=== PATIENT | female | born 1995 | race Caucasian/White ===

== ENCOUNTER 2018-11-09 01:39 | Inpatient (IN) | payer OTHER ==
[2018-11-09] MEDS ORDERED: METHYLERGONOVINE 0.2MG/ML AMP IM PRN (05:17)
[2018-11-09] MEDS ORDERED: Ringers Lactate 1,000 ML IV PRN (05:17)
[2018-11-09] MEDS ORDERED: CARBOPROST TROME 250 MCG/ML IM PRN (05:17)
[2018-11-09] MEDS ORDERED: Ringers Lactate 1,000 ML IV SCH (06:00)
[2018-11-09] MEDS ORDERED: OXYTOCIN/LR 20 UNIT/1,000 ML BAG IV SCH ×2 (06:00→12:00)
[2018-11-09 06:07] VITALS: BMI 23.6
[2018-11-09] MEDS ORDERED: OXYTOCIN/LR 20 UNIT/1,000 ML BAG IV ONE (06:28)
[2018-11-09 06:46] LABS: RPR Titer ND
[2018-11-09 06:49] LABS: Urine Appearance CLEAR; Urine Bilirubin NEGATIVE (NEG); Urine Blood NEGATIVE (NEG); Urine Color YELLOW; Urine Glucose NEGATIVE (NEG); Urine Protein NEGATIVE (NEG); Urine Specific Gravity <=1.005 (1.005-1.030); Urine Urobilinogen 0.2 mg/dL (0.2-1.0); Urine pH 6.5 (5.0-7.0)
[2018-11-09 06:50] LABS: Absolute Lymphocytes (CBC) 2.1 K/uL (0.7-4.9); Absolute Monocytes 0.7 K/uL (0.1-1.3); Absolute Neutrophil 9.3 K/uL (1.8-8.0); Basophils % 0.3 % (0-1.3); Eosinophils % 0.5 % (0-4.4); Hematocrit 35.8 % (36.0-45.0); Monocytes % 6.1 % (3.3-12.3); RBC Red Blood Cell Count 3.81 M/uL (3.86-4.86)
[2018-11-09 07:07] LABS: Urine Microscopic Reflex ORDER UMIC
[2018-11-09 07:08] LABS: Urine Bacteria <20 /HPF (<20); Urine Culture Reflex Order REFLEXED; Urine RBC <5 /HPF (NONE SEEN)
[2018-11-09] MEDS ORDERED: BUTORPHANOL 1 MG/ML INJ IV PRN (08:36)
[2018-11-09] MEDS ORDERED: PROMETHAZINE 25 MG/ML VIAL IM PRN (08:36)
[2018-11-09] MEDS ORDERED: FENTANYL CITR 100 MCG/2 ML IV ONE (10:44)
[2018-11-09] MEDS ORDERED: ROPIVACAINE HCL 100 ML IV ONE (10:45)
[2018-11-09] MEDS ORDERED: ROPIVACAINE HCL 2 MG/ML 100ML IV ONE (10:45)
[2018-11-09] MEDS ORDERED: LIDOCAINE 1% MPF 30 ML VIAL ONE (11:05)
[2018-11-09] MEDS ORDERED: DIPHENHYDRAMINE 25 MG TAB/CAP PO PRN (11:23)
[2018-11-09] MEDS ORDERED: BISACODYL 10 MG RECTAL SUPP RECT PRN (11:23)
[2018-11-09] MEDS ORDERED: DOCUSATE NA/SENNA CONC 1 TAB PO PRN (11:23)
[2018-11-09] MEDS ORDERED: IBUPROFEN 200 MG TAB PO PRN (11:23)
[2018-11-09] MEDS ORDERED: ACETAMINOPHEN 500 MG TAB PO PRN (11:23)
[2018-11-09] MEDS ORDERED: Oxycodone HCl/Acetaminophen 1 TAB TAB PO PRN ×2 (11:23)
--- NOTE | 2018-11-09 11:57 | PREOPHP ---
Date of Admission: 11/09/2018 A 23-year-old primigravida, 39 weeks, Rh positive, immune to Rubella. Negative beta strep screen. 2 .5 cm, 60% effaced, vertex, -1 station. Yesenia regularly. Admission and labor talk given. The patient probably will be requesting epidural little bit later when she gets a more active labor. Ri ght now, she is not uncomfortable at all. Rupture of membranes, clear fluid. Full labor talk given. RAMONA/AL Voice ID: [id number]
[2018-11-09] MEDS ORDERED: Ringers Lactate 1,000 ML IV ONE (14:03)
--- NOTE | 2018-11-09 22:18 | OP ---
Surgeon: Arsh Vasquez MD A 23-year-old, primigravida, 39 weeks, followed antepartum without complications. Rh positive, immun e to Rubella. Negative beta strep screen, 2.5 cm on admission, 56% effaced, vertex, well applied. C ontracting regularly. Rupture of membranes, clear fluid. The patient went into an active labor shaun joana, received Stadol 1 mg IV, 25 mg of Phenergan IM. At 5 cm, requested epidural, but went rapidly t o complete. Second stage of 15 to 20 minutes. Spontaneous vaginal delivery of an estimated 6-pound- plus female, Apgars 9 and 9. Small first-degree laceration on the right side of the introitus, 2-0 c hromic after local infiltration. Schultze delivery of the placenta, which inspected and noted be int act and normal, 350 cc or less blood loss. Tolerated all procedures well. Final Diagnoses: Term intrauterine , spontaneous vaginal delivery. RAMONA/AL Voice ID: [id number] Report ID: [id number]
[2018-11-09 22:27] LABS: RPR (Rapid Plasma Reagin) NON-REACT (NON-REACT)
[2018-11-10 14:15] VITALS: BP 105/65; TEMP 97.2
--- NOTE | 2018-11-11 00:10 | DS ---
Date of Discharge: 11/10/2018 A 23-year-old, primigravida, 39 weeks' gestation, had an uneventful labor and delivery, 6-pound and 2 -ounce female, Apgars 9 and 9. Small first-degree laceration on the right side of the introitus, sut ured with 2-0 chromic under local infiltration. Schultze delivery of the placenta, which was inspect ed and noted to be intact and normal. A 350 cc or less blood loss. Rh positive, immune to Rubella. Negative beta strep screen. ; afebrile, ambulating, and voiding. Lochia is normal. She will be dismissed later this afternoon. Requests no analgesics on dismissal. She is breast feeding. Full post- talk given. She is to report any temperature elevation of 100 degrees or greater, severe pain, heavy bleeding, or any other type of abnormalities. She has had her Tdap immunization. No questions asked this morning. Final Diagnoses: Term intrauterine , 39 weeks, vaginal delivery. RAMONA/AL Voice ID: [id number] Report ID: [id number]
[2018-11-12 02:59] LABS: HBsAG Nonreactive (Nonreactive)
== END 2018-11-10 14:30 | disposition home or self-care (01) | DRG 807 ==
LOC: 2ND-WC 05:19
PROVIDERS: ADMIT Specialist; ATTEND Specialist
PROC: 10E0XZZ Delivery of Products of Conception, External Approach (ICD-10-PCS; principal; 2018-11-09)
PROC: 0HQ9XZZ Repair Perineum Skin, External Approach (ICD-10-PCS; 2018-11-09)
DX: O70.0 First degree perineal laceration during delivery (principal); Z37.0 Single live birth; Z3A.39 39 weeks gestation of pregnancy
CPT/HCPCS: 36415; 81003; 81015; 85025; 86592; 86901; 87086; 87088; 87340; J0595; J2210; J2550; J2590

== ENCOUNTER 2021-06-07 04:50 | Inpatient (IN) | payer OTHER ==
--- OUTSIDE RECORDS SUMMARY | 2021-06-07 05:08 | XMS REPORT | Continuity of Care Document ---
:1995 Author Organization [facility] Address [address] [place] [address] [address] [place] [address] Care Team Providers Name Role Phone RITESH Attending Clinician Unavailable ALEJANDRA, Basil Attending Clinician Unavailable Miky CHRISTIANSON Attending Clinician Unavailable Princess SANZ, R Attending Clinician Doctor Unassigned, Name Attending Clinician Unavailable Alejandra SANZ, Basil Attending Clinician Visit, Nurse Attending Clinician Unavailable Esdras WILSON J Attending Clinician Unavailable Po, [facility] Attending Clinician Unavailable Timothy MCPHERSON Attending Clinician TIMOTHY Attending Clinician Unavailable Orquidea AVITIA, C Attending Clinician Karolyn AYOUB Attending Clinician Unavailable RITESH Admitting Clinician Unavailable Payers Payer Name Policy Type Policy Number Effective Date Expiration Date S madonna MEDICAID PENDING PENDING 2020 00:00:00 Advance Directives Directive Decision Effective Termination Comments Source Date Date Healthcare Agents on N/A [facility] Agent Medical RelationshipCommunicationJai Branch [facility] [phone] (Mobile) Problems Condition Condition Condition Status Onset Resolution Last Treating Co mments Source Name Details Category Date Date Treatment Clinician Date Overweight Overweight Disease Active U nivers (BMI (BMI 4-19 ity of 25.0-29.9) 25.0-29.9) [place] [facility] Multiparit Multiparit Disease Active U nivers y y 4-19 ity of 00:00: [place] [facility] History of History of Disease Active U nivers anxiety anxiety 4-19 ity of 00:00: [place] 00 [facility] 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 7-22 it y of ve ve 00:00: [place] 00 [facility] Branch Depo-Prove Depo-Prove Disease Active 2019- U alexandre ra ra 9-18 ity of contracept contracept [place] status malik status 00 Me dical Branch Hypokalemi Hypokalemi Disease Active 2017-06 U alexandre a a 1-04 ity of 00:00: [address] Branch 11 weeks 11 weeks Disease Active 2017-06 Unive rs gestation gestation 1-03 ity of of of 00:00: [place] 00 [facility] Branch Hyperemesi Hyperemesi Disease Active 2017-06 U alexandre s s 1-03 ity of 00:00: [address] Maternal Maternal Disease Active 2017-06 Overview: Un graciela varicella, varicella, 0-04 Address i ty of non-immune non-immune 00:00[place] [facility] Supervisio Supervisio Disease Active 2017-06 U alexandre n of n of 0-03 ity of high-risk high-risk 00:[place] dical first first Branch trimester trimester Depression Depression Disease Active 2017-06 Overview : Univers 0-03 Currently ity of 00:00: see [place] 00 [facility] milagros on Branch zoloft Nausea and Nausea and Disease Active 2017-06 U alexandre vomiting vomiting 0-03 ity of during during 00:00: [place] 00 [facility] prior to prior to Branch 22 weeks 22 weeks gestation gestation Allergies, Adverse Reactions, Alerts Allergy Allergy Status Severity Reaction(s) Onset Inactive Treating Comm ents Source Name Type Date Date Clinician NO KNOWN Drug Active Univers ALLERGIE Class ity of S [facility] Social History Social Habit Start Date Stop Date Quantity Comments Source ASSERTION 2020-09-30 University of 00:00:00 [facility] Exposure to Not sure University of SARS-CoV-2 [facility] (event) Branch Tobacco use and 2020-10-16 2020-10-16 Never used Universit y of exposure 00:00:00 00:00:00 [facility] Alcohol intake 2020-10-16 2020-10-16 Current drinker Unive rsity of 00:00:00 00:00:00 of alcohol [facility] (finding) [facility] Alcohol Comment 2018-04-01 2018-04-01 social Universit y of 00:00:00 00:00:00 [facility] Sex Ass[birth year] At [birth year] Universit y of 00:00:00 00:00:00 [facility] Smoking Status Start Date Stop Date Source Never smoker [facility] Medications Ordered Filled Start Stop Current Ordering Indication Dosage Frequency Signature Comments Components Source Medication Medication Date Date Medication? Clinician (SIG) Name Name proMETHazin Yes [id number] 25mg Take 1 Univers e 25 mg 4-27 tablet by ity of tablet 00:00: mouth [place] [id number] every 4 Medical (four) Branch hours as needed for Nausea and Vomiting (N/V). proMETHazin Yes [id number] 25mg Take 1 Univers e 25 mg 4-27 tablet by ity of tablet 00:00: mouth [place] [id number] every 4 Medical (four) Branch hours as needed for Nausea and Vomiting (N/V). sertraline Yes Take by Uni vers HCl (ZOLOFT 4-19 mouth. ity of ORAL) 19:14: [address] sertraline Yes Take by Uni vers HCl (ZOLOFT 4-19 mouth. ity of ORAL) 19:14: [address] sertraline Yes Take by Uni vers HCl (ZOLOFT 4-19 mouth. ity of ORAL) 19:14: [address] sertraline Yes Take by Uni vers HCl (ZOLOFT 4-19 mouth. ity of ORAL) 19:14: [address] sertraline Yes Take by Uni vers HCl (ZOLOFT 4-19 mouth. ity of ORAL) 19:14: [address] sertraline 2019-06 Yes Take by Uni vers HCl (ZOLOFT 0-22 mouth. ity of ORAL) 18:00: [address] sertraline 2019-06 Yes Take by Uni vers HCl (ZOLOFT 0-22 mouth. ity of ORAL) 18:00: [address] sertraline 2019-06 Yes Take by Uni vers HCl (ZOLOFT 0-22 mouth. ity of ORAL) 18:00: [place] 03 Medical Branch LOESTRIN FE 2020-1 Yes [id number] 1{tbl} Take 1 Univers (MICROGESTI 0-22 tablet by ity of N FE 07/19) 00:00: mouth [place] 1 mg-20 mcg 00 daily. Medica l (21)/75 mg Branch (7) tablet LOESTRIN FE 2020-1 Yes [id number] 1{tbl} Take 1 Univers (MICROGESTI 0-22 tablet by ity of N FE 07/19) 00:00: mouth [place] 1 mg-20 mcg 00 daily. Medica l (21)/75 mg Branch (7) tablet LOESTRIN FE 2020- Yes [id number] 1{tbl} Take 1 Univers (MICROGESTI 0-22 tablet by ity of N FE 07/19) 00:00: mouth [place] 1 mg-20 mcg 00 daily. Medica l (21)/75 mg Branch (7) tablet LOESTRIN FE 2020- Yes [id number] 1{tbl} Take 1 Univers (MICROGESTI 0-22 tablet by ity of N FE 07/19) 00:00: mouth [place] 1 mg-20 mcg 00 daily. Medica l (21)/75 mg Branch (7) tablet LOESTRIN FE 2020- Yes [id number] 1{tbl} Take 1 Univers (MICROGESTI 0-22 tablet by ity of N FE 07/19) 00:00: mouth [place] 1 mg-20 mcg 00 daily. Medica l (21)/75 mg Branch (7) tablet LOESTRIN FE 2020- Yes [id number] 1{tbl} Take 1 Univers (MICROGESTI 0-22 tablet by ity of N FE 07/19) 00:00: mouth [place] 1 mg-20 mcg 00 daily. Medica l (21)/75 mg Branch (7) tablet LOESTRIN FE 2020- Yes [id number] 1{tbl} Take 1 Univers (MICROGESTI 0-22 tablet by ity of N FE 07/19) 00:00: mouth [place] 1 mg-20 mcg 00 daily. Medica l (21)/75 mg Branch (7) tablet LOESTRIN FE 2020- Yes [id number] 1{tbl} Take 1 Univers (MICROGESTI 0-22 tablet by ity of N FE 07/19) 00:00: mouth [place] 1 mg-20 mcg 00 daily. Medica l (21)/75 mg Branch (7) tablet sertraline 2019-0 Yes Take by Uni vers HCl (ZOLOFT 7-21 mouth. ity of ORAL) 17:11: [address] sertraline 2020-0 Yes Take by Uni vers HCl (ZOLOFT 7-21 mouth. ity of ORAL) 17:11: [address] sertraline 2019-0 Yes Take by Uni vers HCl (ZOLOFT 7-21 mouth. ity of ORAL) 17:11: [address] sertraline 2020-0 Yes Take by Uni vers HCl (ZOLOFT 7-21 mouth. ity of ORAL) 17:11: [address] LOESTRIN FE 2019-0 Yes [id number] 1{tbl} Take 1 Univers (MICROGESTI 7-21 tablet by ity of N FE 07/19) 00:00: mouth [place] 1 mg-20 mcg 00 daily. Medica l (21)/75 mg Branch (7) tablet LOESTRIN FE 2020-0 Yes [id number] 1{tbl} Take 1 Univers (MICROGESTI 7-21 tablet by ity of N FE 07/19) 00:00: mouth [place] 1 mg-20 mcg 00 daily. Medica l (21)/75 mg Branch (7) tablet LOESTRIN FE 2020-0 Yes [id number] 1{tbl} Take 1 Univers (MICROGESTI 7-21 tablet by ity of N FE 07/19) 00:00: mouth [place] 1 mg-20 mcg 00 daily. Medica l (21)/75 mg Branch (7) tablet LOESTRIN FE 2020-0 Yes [id number] 1{tbl} Take 1 Univers (MICROGESTI 7-21 tablet by ity of N FE 07/19) 00:00: mouth [place] 1 mg-20 mcg 00 daily. Medica l (21)/75 mg Branch (7) tablet LOESTRIN FE 2020-0 2020- No [id number] 1{tbl} Take 1 Univers (MICROGESTI 7-21 10-22 tablet by it y of N FE 07/19) 00:00: 00:00 mouth [place] 1 mg-20 mcg 00 :00 daily. Medica l (21)/75 mg Branch (7) tablet LOESTRIN FE 2019-0 2020- No [id number] 1{tbl} Take 1 Univers (MICROGESTI 7-21 10-22 tablet by it y of N FE 07/19) 00:00: 00:00 mouth [place] 1 mg-20 mcg 00 :00 daily. Medica l (21)/75 mg Branch (7) tablet medroxyPROG 2019-0 2020- No 150mg Univ ers ESTERone 12-0912 ity of (DEPO-PROVE 16:30: 15:27 [place] RA) 00 :00 Medical injection Branch 150 mg medroxyPROG 2019-0 2020- No 150mg 150 mg, U nivers ESTERone 12-0912 Intramuscu ity of (DEPO-PROVE 16:30: 15:27 lar, ONCE, [place] RA) 00 :00 1 dose, Medical injection Fri Branch 150 mg 12/10/19 at 1130, Routine pyridoxine 2019- No Take by Un graciela HCl, 09-28- mouth. ity of vitamin B6, 20:38: 00:00 [place] (VITAMIN 29 :00 Medical B-6 ORAL) Branch sertraline 0 Yes Take by Uni vers HCl (ZOLOFT - mouth. ity of ORAL) 20:12: [place] [address] Medical Branch sertraline 2019-0 Yes Take by Uni vers HCl (ZOLOFT - mouth. ity of ORAL) 20:12: [place] [address] Medical Branch sertraline 2019-0 Yes Take by Uni vers HCl (ZOLOFT - mouth. ity of ORAL) 20:12: [address] Branch sertraline 2019-0 Yes Take by Uni vers HCl (ZOLOFT 4-01 mouth. ity of ORAL) 20:12: [place] [address] Medical Branch medroxyPROG 2019-0 2020- No 150mg Univ ers ESTERone -20 03-20 ity of (DEPO-PROVE 16:15: 15:09 [place] RA) 00 :00 Medical injection Branch 150 mg medroxyPROG 2020-0 2020- No 150mg 150 mg, U nivers ESTERone 09-16 03-20 Intramuscu ity of (DEPO-PROVE 16:15: 15:09 lar, ONCE, [place] RA) 00 :00 1 dose, Medical injection Fri Branch 150 mg 3/20/20 at 1115, Routine medroxyPROG 2019-0 2020- No 150mg Univ ers ESTERone 3-20 -20 ity of (DEPO-PROVE 16:15: 15:09 [place] RA) 00 :00 Medical injection Branch 150 mg medroxyPROG 2019-0 2019- No 150mg 150 mg, U nivers ESTERone -16 09-20 Intramuscu ity of (DEPO-PROVE 16:15: 15:09 lar, ONCE, [place] RA) 00 :00 1 dose, Medical injection Fri Branch 150 mg /20 at 1115, Routine pyridoxine Yes Take by Uni vers HCl, 9-18 mouth. ity of vitamin B6, 13:42: [place] (VITAMIN 39 Medical B-6 ORAL) [facility] pyridoxine Yes Take by Uni vers HCl, 9-18 mouth. ity of vitamin B6, 13:42: [place] (VITAMIN 39 Medical B-6 ORAL) [place] pyridoxine Yes Take by Uni vers HCl, 9-18 mouth. ity of vitamin B6, 13:42: [place] (VITAMIN 39 Medical B-6 ORAL) [place] pyridoxine Yes Take by Uni vers HCl, 9-18 mouth. ity of vitamin B6, 13:42: [place] (VITAMIN 39 Medical B-6 ORAL) [place] pyridoxine 2017-06 Yes Take by Uni vers HCl, 1-04 mouth. ity of vitamin B6, 19:46: [place] (VITAMIN 54 Medical B-6 ORAL) Branch PNV 67-iron 2017-06 Yes [id number] 1{each} Take 1 Univers ps-folate 0-03 Each by ity of no.1-dha 00:00: mouth [place] (VITAFOL 00 daily. Medical ULTRA) 29 Branch mg iron- 1 mg-200 mg Cap proMETHazin 2017-06 Yes [id number] 25mg Take 1 Univers e 25 mg 0-03 tablet by ity of tablet 00:00: mouth [place] 00 every 6 Medical (six) Branch hours as needed for Nausea and Vomiting (N/V). PNV 67-iron 2017-06 Yes [id number] 1{each} Take 1 Univers ps-folate 0-03 Each by ity of no.1-dha 00:00: mouth [place] (VITAFOL 00 daily. Medical ULTRA) 29 Branch mg iron- 1 mg-200 mg Cap proMETHazin 2017-06 Yes [id number] 25mg Take 1 Univers e 25 mg 0-03 tablet by ity of tablet 00:00: mouth [place] 00 every 6 Medical (six) Branch hours as needed for Nausea and Vomiting (N/V). PNV 67-iron 2017-06 Yes [id number] 1{each} Take 1 Univers ps-folate 0-03 Each by ity of no.1-dha 00:00: mouth [place] (VITAFOL 00 daily. Medical ULTRA) 29 Branch mg iron- 1 mg-200 mg Cap proMETHazin 2017-06 Yes [id number] 25mg Take 1 Univers e 25 mg 0-03 tablet by ity of tablet 00:00: mouth [place] 00 every 6 Medical (six) Branch hours as needed for Nausea and Vomiting (N/V). PNV 67-iron 2017-06 Yes [id number] 1{each} Take 1 Univers ps-folate 0-03 Each by ity of no.1-dha 00:00: mouth [place] (VITAFOL 00 daily. Medical ULTRA) 29 Branch mg iron- 1 mg-200 mg Cap proMETHazin 2017-06 Yes [id number] 25mg Take 1 Univers e 25 mg 0-03 tablet by ity of tablet 00:00: mouth [place] 00 every 6 Medical (six) Branch hours as needed for Nausea and Vomiting (N/V). PNV 67-iron 2017-06 Yes [id number] 1{each} Take 1 Univers ps-folate 0-03 Each by ity of no.1-dha 00:00: mouth [place] (VITAFOL 00 daily. Medical ULTRA) 29 Branch mg iron- 1 mg-200 mg Cap proMETHazin 2017-06 Yes [id number] 25mg Take 1 Univers e 25 mg 0-03 tablet by ity of tablet 00:00: mouth [place] 00 every 6 Medical (six) Branch hours as needed for Nausea and Vomiting (N/V). PNV 67-iron 2017-06 2020- No [id number] 1{each} Take 1 Univers ps-folate 0-03 04-01 Each by ity of no.1-dha 00:00: 00:00 mouth [place] (VITAFOL 00 :00 daily. Medical ULTRA) 29 Branch mg iron- 1 mg-200 mg Cap proMETHazin 2017-06 2020- No [id number] 25mg Take 1 Univers e 25 mg 0-03 09-28 tablet by adalid of tablet 00:00: 00:00 mouth [place] 00 :00 every 6 Medical (six) Branch hours as needed for Nausea and Vomiting (N/V). Immunizations Ordered Filled Immunization Date Status Comments Sourc e Immunization Name Name HPV 2012-05-03 Completed University of 00:00:00 [place] [facility] HPV 2012-05-03 Completed University of 00:00:00 [place] [facility] HPV 2012-05-03 Completed University of 00:00:00 [place] [facility] HPV 2012-05-03 Completed University of 00:00:00 [place] [facility] HPV 2012-05-03 Completed University of 00:00:00 [place] [facility] HPV 2012-05-03 Completed University of 00:00:00 [place] [facility] HPV 2012-05-03 Completed University of 00:00:00 [place] [facility] HPV 2012-05-03 Completed University of 00:00:00 [facility] Branch HPV 2012-05-03 Completed University of 00:00:00 [facility] Branch HPV 2012-05-03 Completed University of 00:00:00 [place] [facility] HPV 2012-05-03 Completed University of 00:00:00 [place] [facility] HPV 2012-05-03 Completed University of 00:00:00 [place] [facility] HPV 2012-05-03 Completed University of 00:00:00 [place] [facility] HPV 2012-05-03 Completed University of 00:00:00 [place] [facility] HPV 2012-05-03 Completed University of 00:00:00 [facility] Branch HPV 2012-05-03 Completed University of 00:00:00 [facility] Branch HPV 2012-05-03 Completed University of 00:00:00 [place] [facility] HPV 2012-05-03 Completed University of 00:00:00 [place] [facility] HPV 2012-05-03 Completed University of 00:00:00 [facility] Branch HPV 2012-05-03 Completed University of 00:00:00 [facility] Branch HPV 2012-05-03 Completed University of 00:00:00 [facility] Branch Tdap 2011-06-30 Completed University of 00:00:00 [facility] Branch Tdap 2011-06-30 Completed University of 00:00:00 [facility] Branch Tdap 2011-06-30 Completed University of 00:00:00 [facility] Branch TDAP 2011-06-30 Completed University of 00:00:00 [facility] Branch TDAP 2011-06-30 Completed University of 00:00:00 [facility] Branch TDAP 2011-06-30 Completed University of 00:00:00 [place] [facility] TDAP 2011-06-30 Completed University of 00:00:00 [place] [facility] TDAP 2011-06-30 Completed University of 00:00:00 [place] [facility] TDAP 2011-06-30 Completed University of 00:00:00 [place] [facility] TDAP 2011-06-30 Completed University of 00:00:00 [place] [facility] TDAP 2011-06-30 Completed University of 00:00:00 [place] [facility] TDAP 2011-06-30 Completed University of 00:00:00 [place] [facility] TDAP 2011-06-30 Completed University of 00:00:00 [place] [facility] TDAP 2011-06-30 Completed University of 00:00:00 [place] [facility] TDAP 2011-06-30 Completed University of 00:00:00 [place] [facility] TDAP 2011-06-30 Completed University of 00:00:00 [place] [facility] Tdap 2011-06-30 Completed University of 00:00:00 [place] [facility] Tdap 2011-06-30 Completed University of 00:00:00 [place] [facility] Tdap 2011-06-30 Completed University of 00:00:00 [facility] Branch Tdap 2011-06-30 Completed University of 00:00:00 [facility] Branch Tdap 2011-06-30 Completed University of 00:00:00 [facility] Vital Signs Vital Name Observation Time Observation Value Comments Source Systolic blood 2020-10-16 19:04:00 120 mm[Hg] Univer sity of pressure [facility] Diastolic blood 2020-10-16 19:04:00 80 mm[Hg] Unive rsity of pressure [facility] Heart rate 2020-10-16 19:04:00 88 /min [facility] Body temperature 2020-10-16 19:04:00 36.44 Echo [facility] 2020-10-16 19:04:00 16 /min [facility] Body height 2020-10-16 19:04:00 157.5 cm [facility] Body weight 2020-10-16 19:04:00 67.813 kg [facility] BMI 2020-10-16 19:04:00 27.34 kg/m2 Universi ty of [place] [facility] Systolic blood 2020-04-20 18:03:00 136 mm[Hg] Univer sity of pressure [place] [facility] Diastolic blood 2020-04-20 18:03:00 86 mm[Hg] Unive rsity of pressure [place] [facility] Heart rate 2020-04-20 18:03:00 98 /min Universi ty of [place] [facility] Body temperature 2020-04-20 18:03:00 36.72 Echo Univ ersity of [place] [facility] Respiratory rate 2020-04-20 18:03:00 16 /min Univ ersity of [place] [facility] Body height 2020-04-20 18:03:00 157.5 cm Universi ty of [place] [facility] Body weight 2020-04-20 18:03:00 67.217 kg Universi ty of [place] [facility] BMI 2020-04-20 18:03:00 27.10 kg/m2 Universi ty of [place] [facility] Systolic blood 2020-01-18 16:23:00 134 mm[Hg] Univer sity of pressure [place] [facility] Diastolic blood 2020-01-18 16:23:00 88 mm[Hg] Unive rsity of pressure [place] [facility] Heart rate 2020-01-18 16:23:00 89 /min Universi ty of [place] [facility] Body temperature 2020-01-18 16:23:00 36.33 Echo Univ ersity of [place] [facility] Respiratory rate 2020-01-18 16:23:00 16 /min Univ ersity of [place] [facility] Body height 2020-01-18 16:23:00 157.5 cm Universi ty of [place] [facility] Body weight 2020-01-18 16:23:00 64.553 kg Universi ty of [place] [facility] BMI 2020-01-18 16:23:00 26.03 kg/m2 Universi ty of [place] [facility] Systolic blood 2019-12-10 15:25:00 126 mm[Hg] Univer sity of pressure [place] [facility] Diastolic blood 2019-12-10 15:25:00 77 mm[Hg] Unive rsity of pressure [place] [facility] Heart rate 2019-12-10 15:25:00 81 /min Universi ty of [place] [facility] Body temperature 2019-12-10 15:25:00 36.67 Echo Univ ersity of [place] [facility] Respiratory rate 2019-12-10 15:25:00 16 /min Univ ersity of [place] [facility] Body height 2019-12-10 15:25:00 157.5 cm Universi ty of [place] [facility] Body weight 2019-12-10 15:25:00 63.107 kg Universi ty of [place] [facility] BMI 2019-12-10 15:25:00 25.45 kg/m2 Universi ty of [facility] Branch Systolic blood 2019-09-29 20:09:00 136 mm[Hg] Univer sity of pressure [place] [facility] Diastolic blood 2019-09-29 20:09:00 82 mm[Hg] Unive rsity of pressure [place] [facility] Heart rate 2019-09-29 20:09:00 101 /min Universi ty of [facility] Branch Body temperature 2019-09-29 20:09:00 37.56 Echo Univ ersity of [facility] Branch Respiratory rate 2019-09-29 20:09:00 18 /min Univ ersity of [facility] Body weight 2019-09-29 20:09:00 61.689 kg Universi ty of [place] [facility] BMI 2019-09-29 20:09:00 24.87 kg/m2 Universi ty of [facility] Branch Oxygen saturation in 2019-09-29 20:09:00 96 /min University of Arterial blood by [facility] Pulse oximetry Branch Systolic blood 2019-09-17 15:00:00 108 mm[Hg] Univer sity of pressure [facility] Branch Diastolic blood 2019-09-17 15:00:00 56 mm[Hg] Unive rsity of pressure [facility] Body temperature 2019-09-17 15:00:00 37.5 Echo Univ ersity of [facility] Body weight 2019-09-17 15:00:00 60.782 kg Universi ty of [place] [facility] BMI 2019-09-17 15:00:00 24.51 kg/m2 Universi ty of [facility] Branch Respiratory rate 2019-09-17 15:00:00 18 /min Univ ersity of [facility] Branch Body height 2019-09-17 15:00:00 157.5 cm Universi ty of [place] [facility] Systolic blood 2019-03-17 13:19:00 124 mm[Hg] Univer sity of pressure [facility] Branch Diastolic blood 2019-03-17 13:19:00 81 mm[Hg] Unive rsity of pressure [facility] Branch Heart rate 2019-03-17 13:19:00 88 /min [facility] Body temperature 2019-03-17 13:19:00 37.39 Echo [facility] Respiratory rate 2019-03-17 13:19:00 16 /min [facility] Body height 2019-03-17 13:19:00 157.5 cm [facility] Body weight 2019-03-17 13:19:00 57.72 kg [facility] BMI 2019-03-17 13:19:00 23.27 kg/m2 [facility] Procedures Procedure Date / Time Performing Clinician Source Performed POCT TEST 2020-10-16 19:07:00 Vlad Christianson [facility] POCT URINALYSIS 2020-10-16 19:06:00 Vlad Christianson [facility] REPORT OF 2020-10-16 05:01:00 Doctor Unassigned, [facility] ASSIGNMENT OF BENEFITS 2020-04-20 17:51:59 Doctor Unassjacquelyn, [facility] POCT FLU A AND B 2019-09-29 00:00:00 Charmaine Acosta [facility] NO SHOW OR MISSED 2019-03-17 13:09:54 Doctor Lupe, [facility] APPOINTMENT POLICY [facility] ACKNOWLEDGEMENT Encounters Start End Encounter Admission Attending Care Care Encounter Source Date/Time Date/Time Type Type Clinicians Facility Department ID 2021-05-23 2021-05-23 Outpatient [facility] [id number] [place] 05:02:00 05:02:00 N [id number] 2021-01-18 2021-01-18 Outpatient Miky [facility] [id number] Univers 13:00:00 13:00:00 LEONOR [id number] [facility] 2021-01-18 2021-01-18 Outpatient Miky [facility] [id number] Univers 13:00:00 13:00:00 LEONOR [facility] 2020-11-13 2020-11-13 Outpatient R [facility] [id number] Univers 13:00:00 13:00:00 ANNYNDA [id number] ity o f [facility] 2020-11-13 2020-11-13 Outpatient R [facility] [id number] Univers 13:00:00 13:00:00 ANNYNDA ity o [facility] 2020-10-24 2020-10-24 Telephone Princess [facility] [id number] Univers 00:00:00 00:00:00 Annynda R SKIP LOADER [id number] ity of REGIONAL [id number] Abelino as MATERNAL [id number] [facility] & CHILD [address] [place] [address] 2020-10-16 2020-10-16 [id number] Univers 13:55:04 14:38:35 Aidaa R SKIP LOADER [id number] ity of Visit REGIONAL [id number] Abelino as MATERNAL [id number] [facility] & [address] 2020-10-16 2020-10-16 Outpatient [facility] [id number] Univers 14:00:00 14:00:00 ANNYNDA [id number] ity o ulices [facility] 2020-10-16 2020-10-16 [facility] [id number] Univers 13:30:00 13:30:00 RAMANDEEPNDA ity o [facility] 2020-10-16 2020-10-16 Orders Doctor NELIA 1.2.840.114 [id number] Univers 00:00:00 00:00:00 Only Unassigned, VERNA [id number] ity of [place] [facility] [id number] Abelino as [phone] [address] 2020-06-11 2020-06-11 Refill Doctor RAEANN [id number] Univers 00:00:00 00:00:00 Unassigned, SKIP LOADER [id number] [place] [facility] [id number] Abelino as MATERNAL [phone] Med ical & CHILD [address] [place] [address] 2020-04-20 2020-04-20 Office [facility] [id number] Univers 12:53:18 13:12:38 Visit Leonor Gracia SKIP LOADER [id number] [facility] [id number] Abelino as MATERNAL [phone] Med ical & CHILD [address] [place] [address] 2020-04-20 2020-04-20 Outpatient R [facility] [id number] Univers 12:45:00 12:45:00 LEONOR [id number] ity [facility] 2020-04-20 2020-04-20 [facility] [id number] Univers 12:45:00 12:45:00 LEONOR adalid [facility] 2020-04-20 2020-04-20 Orders Doctor PICKENS 1.2.840.114 [id number] Univers 00:00:00 00:00:00 Only Unassigned, VERNA [id number] ity of [place] [address]2.7.2.686 Abelino as [phone] [address] 2020-03-03 2020-03-03 Outpatient R [facility] [id number] Univers 10:00:00 10:00:00 [id number] ity [facility] 2020-01-19 2020-01-19 Telephone [facility] 1.2.840.114 [id number] Univers 00:00:00 00:00:00 Leonor Gracia SKIP LOADER [id number] [facility] [id number] Abelino as MATERNAL [phone] [facility] ical & CHILD [address] [place] [address] 2020-01-18 2020-01-18 Office [facility] [id number] Univers 11:00:52 12:09:27 Visit Leonor Gracia SKIP LOADER [id number] [facility] [id number] Abelino as MATERNAL [phone] Med ical & CHILD [address] [place] [address] 2020-01-18 2020-01-18 Outpatient R ALEJANDRA [facility] [id number] Univers 11:00:00 11:00:00 LEONOR [id number] ity [facility] 2020-01-18 2020-01-18 [facility] [id number] Univers 11:00:00 11:00:00 LEONOR ity [facility] 2020-01-15 2020-01-15 Telephone Christianson [facility] [id number] Univers 00:00:00 00:00:00 Vlad Bolaños SKIP LOADER [id number] ity [facility] [id number] Abelino as MATERNAL [phone] [facility] ical & CHILD [address] [place] [address] 2019-12-10 2019-12-10 [facility] 1.2 .840.114 [id number] Univers 10:16:28 10:27:34 Visit Vlad Christianson SKIP LOADER [id number] ity [place] [id number] Abelino as MATERNAL [phone] [facility] ica & [address] 2019-12-10 2019-12-10 Outpatient R [facility] [id number] Univers 10:00:00 10:00:00 [id number] ity [facility] 2019-12-10 2019-12-10 Outpatient R [facility] [id number] Univers 10:00:00 10:00:00 ity [facility] 2019-10-02 2019-10-02 Telephone NELIA Dewitt 1.2.840.114 [id number] Univers 00:00:00 00:00:00 Jess GILLESPIE [id number] i ty of [facility] 4.2.7.2.686 Abelino as [phone] [address] 2019-09-29 2019-09-29 Urgent Pob1, Acute Care Clinic [facility] 1. 2.840.114 [id number] Univers 14:56:27 15:52:00 Care Timothy [facility] [id number] ity [facility] [id number] Abelino as Professio [phone] [address] Office [address] [facility] 2019-09-29 2019-09-29 Outpatient R [facility] [id number] Univers 14:40:00 14:40:00 [id number] ity [facility] 2019-09-29 2019-09-29 Outpatient R TIMOTHY [facility] [id number] Univers 14:40:00 14:40:00 NATALIE ity [facility] 2019-09-29 2019-09-29 Telephone Pob1, Acute [facility] [id number] Univers 00:00:00 00:00:00 [facility] [id number] ity [facility] [id number] Abelino as Professio [phone] [address] 2019-09-17 2019-09-17 Nurse Visit, [facility] Nurse [facility] 1.2 .840.114 [id number] Univers 09:19:20 12:10:53 Visit Janette Ayoub SKIP LOADER 350.1.13. [address] [facility] [id number] Abelino as MATERNAL [phone] Med ical & CHILD [address] [place] [address] 2019-09-17 2019-09-17 Outpatient R ORQUIDEA [facility] [id number] Univers 09:30:00 09:30:00 JANETTE elena [facility] 2019-03-17 2019-03-17 Office Princess [facility] 1.2.840.114 [id number] Univers 08:13:04 08:44:50 Visit Vlad Bolaños SKIP LOADER [id number] [facility] [id number] Abelino as MATERNAL [phone] [facility] ical & CHILD [address] [place] [address] 2019-03-17 2019-03-17 Orders Doctor PICKENS 1.2.840.114 [id number] Univers 00:00:00 00:00:00 Only Unassigned, VERNA [id number] ity of [place] [facility] 4.2.7.2.686 Abelino as [phone] [address] Results Test Description Test Time Test Comments Results Result Comments Source POCT TEST 2020-10-16 19:07:00 Test Item Value Reference Range Interpretation Comme nts POCT PREG (test code = 1605) Positive On board controls acceptable with C Line (test code = 3574) Yes POCT PREG LOT # (test code = 3575) PO[facility] DATE (test code = 3576[id number] 19:07:00 Test Item Value Reference Range Interpretation Comments POCT PREG (test code = 1605) Positive On board controls acceptable with C Yes Line (test code = 3574) POCT PREG LOT # (test code = 3575) POCT PREG TEST DATE (test code = 3576) [facility] URINALYSIS W SPECIFIC [id number] 19:06:00 Test Item Value Reference Range Interpretation Comments POCT U SP GRAV (test code = . 1.005-1.025 3255) POCT PH U (test code = 3254) 6 mg/dl 5-8 POCT U LEUK EST (test code = 2+ Negative - Negative 3263) POCT U NIT (test code = 3262) NEGATIVE Negative - Negative POCT U PROT (test code = 3259) TRACE Negative - Negative POCT U GLU (test code = 3256) NEGATIVE Negative - Negative POCT U KETONE (test code = 3258) NEGATIVE Negative - Negative POCT U UROBILI (test code = . 0.2-1 3260) POCT U BILI (test code = 3261) . Negative - Negative POCT U BLD (test code = 3257) NEGATIVE Negative - Negative POCT U COLOR (test code = 3266) POCT U APPEAR (test code = 3267) [facility] URINALYSIS W SPECIFIC [id number] 19:06:00 Test Item Value Reference Range Interpretation Comments POCT U SP GRAV (test code = . 1.005-1.025 3255) POCT PH U (test code = 3254) 6 mg/dl 5-8 POCT U LEUK EST (test code = 2+ Negative - Negative 3263) POCT U NIT (test code = 3262) NEGATIVE Negative - Negative POCT U PROT (test code = 3259) TRACE Negative - Negative POCT U GLU (test code = 3256) NEGATIVE Negative - Negative POCT U KETONE (test code = 3258) NEGATIVE Negative - Negative POCT U UROBILI (test code = . 0.2-1 3260) POCT U BILI (test code = 3261) . Negative - Negative POCT U BLD (test code = 3257) NEGATIVE Negative - Negative POCT U COLOR (test code = 3266) POCT U APPEAR (test code = 3267) [facility]2019-09-29 20:30:00 Test Item Value Reference Range Interpretation Comments POCT INFLUENZA A (test code = Negative Negative - Negative 3840) POCT INFLUENZA B (test code = Negative Negative - Negative 3841) [facility]
[2021-06-07] MEDS ORDERED: CARBOPROST TROME 250 MCG/ML IM PRN (05:27)
[2021-06-07] MEDS ORDERED: PENICILLIN 5 MU in NA CHLORIDE 0.9% 100 ML IV ONE (05:27)
[2021-06-07] MEDS ORDERED: METHYLERGONOVINE 0.2MG/ML AMP IM PRN (05:27)
[2021-06-07] MEDS ORDERED: BUTORPHANOL 1 MG/ML INJ IV PRN (05:27)
[2021-06-07] MEDS ORDERED: PROMETHAZINE INJ 25 MG/ML AMP IV PRN (05:27)
[2021-06-07] MEDS ORDERED: METHYLERGONOVINE 0.2MG/ML AMP IM ONE (05:36)
[2021-06-07] MEDS ORDERED: OXYTOCIN/LR 20 UNIT/1,000 ML BAG IV ONE (05:36)
[2021-06-07] MEDS: Ringers Lactate 1,000 ML IV PRN ×2 (05:44→06:27)
[2021-06-07] MEDS ORDERED: Ringers Lactate 1,000 ML IV SCH (06:00)
[2021-06-07] MEDS ORDERED: OXYTOCIN/LR 20 UNIT/1,000 ML BAG IV SCH (06:00)
[2021-06-07 06:10] VITALS: BMI 25.6
[2021-06-07 06:10] LABS: Urine Appearance CLOUDY (Clear); Urine Bilirubin NEGATIVE (Negative); Urine Blood TRACE (Negative); Urine Color YELLOW (Yellow); Urine Glucose NEGATIVE (Negative); Urine Protein NEGATIVE (Negative)
[2021-06-07 06:11] LABS: Urine Microscopic Reflex ORDER UMIC
[2021-06-07 06:15] LABS: Absolute Lymphocytes (CBC) 2.1 K/uL (0.7-4.9); Basophils % 0.2 % (0-1.3); Hematocrit 35.6 % (36.0-45.0); Lymphocytes % 18.5 % (15.3-44.8); MPV 10.5 fL (7.6-11.3); RBC Red Blood Cell Count 3.87 M/uL (3.86-4.86)
[2021-06-07 06:23] LABS: Urine Bacteria <20 /HPF (<20); Urine RBC <5 /HPF (NONE SEEN)
[2021-06-07] MEDS ORDERED: 0.2% ROPIVACAINE (200 MG/100 ML) BAG EP ONE (06:26)
[2021-06-07] MEDS ORDERED: FENTANYL CITR 100 MCG/2 ML IV ONE (06:27)
[2021-06-07] MEDS ORDERED: ROPIVACAINE HCL 0 ML ONE (06:39)
[2021-06-07] MEDS ORDERED: ROPIVACAINE HCL 0.2% 20ML AMP EP ONE (07:00)
[2021-06-07] MEDS ORDERED: LIDOCAINE 1% MPF 30 ML VIAL ONE (07:17)
[2021-06-07] MEDS ORDERED: CARBOPROST TROME 250 MCG/ML IM ONE (07:18)
[2021-06-07] MEDS ORDERED: PENICILLIN 2.5 MU in NA CHLORIDE 0.9% 100 ML IV SCH ×2 (09:00→10:00)
[2021-06-07] MEDS ORDERED: INFLUENZA VACCINE (for 6+ mo) 0.5 ML DOSE IMVAC ONE (12:00)
--- NOTE | 2021-06-07 13:32 | DN ---
Date of Procedure: 06/07/2021 Surgeon: Andrey Sanders Delivery Date: 06/07/2021. Final Diagnosis: 1.Intrauterine , 38 weeks of gestation delivered. . 2.Normal vaginal delivery. Hospital Course: Sima Chavez is a 25-year-old white female, G2, P1, at 38 weeks of gestation, came in the hospital complaining of onset of labor past midnight and the pain lasted throughout the lard maker and came to the labor room for evaluation, after a stay for labor at 5 cm. Maternal co ndition stable. No macrosomia suspected and no CPD. Estimated weight is about 7 pounds and sh e was allowed to labor. The patient requested epidural for comfort and thereafter she had an artific ial rupture of membrane showing meconium staining. She was melissa every 2 minutes apart and dur ing the next few hours she reached complete cervical dilatation, ready for second stage of labor. He r legs were placed up in stirrups. The vaginal area prepped and washed by using Betadine prep. Then she was draped in a sterile fashion. With the maternal pushes, the 's head was slowly crownin g and the baby's head initially was ROP and rotation noted and after rotation, baby's head delivered with gentle support on the perineum. There was a tight nuchal cord on the baby's neck. Therefore, 2 large Radha clamps were used to clamp the cord and cut. Now delivered the anterior shoulder followe d by posterior shoulder, body and delivery completed. Cord was further clamped and passed down to e nursing staff. Cord blood obtained. Placenta delivered with Meek. There were no tears. No epi siotomy. The uterus was firm with aggressive fundal massage was done. No excessive bleeding. No co mplications. Well baby delivered. Condition: Stable. Estimated Blood Loss: 200 cc. Clinical Finding: She delivered a male baby, scores of 8 and 9. Weight 7 pounds 2 ounces. Le ngth is 19 inches long. Meconium stained amniotic fluid. The baby's nose and mouth, aggressive suct ion. After delivery the patient was comfortable with epidural. BW/MODL Voice ID: [id number] Report ID: [id number]
[2021-06-08 07:23] VITALS: BP 116/63; TEMP 97
[2021-06-08] MEDS ORDERED: INFLUENZA VACCINE (for 6+ mo) 0.5 ML DOSE IMVAC ONE (10:00)
[2021-06-08] MEDS ORDERED: Tdap (Diph,Pertuss(Acell),Tet Vac) 0.5 ML SYR IMVAC ONE (10:00)
--- NOTE | 2021-06-08 14:10 | DS ---
Date of Discharge: 06/08/2021 Final Discharge Diagnoses: 1.Intrauterine at 38 weeks of gestation, delivered. 2.Normal vaginal delivery. 3.Single live . Disposition: Home. Condition: Stable and improved. Prescription: Ibuprofen 800 mg #20 one tab p.o. t.i.d. with 1 refill. Followup Instructions: Contact Dr. Vasquez's office, 4-6 weeks followup. Hospital Course: Sima Chavez is a G2, P1, white female, term , came to the hospital sponta neous labor. Her attending physician, Dr. Vasquez and myself and Dr. Vasquez working together to the the medical centernt was admitted in labor at 5 cm. Artificial rupture of membrane was done showing clear fluid. He r labor progressed. She requests epidural for comfort and she also received penicillin for her posit malik group B strep. She had uneventful vaginal and she delivered a well baby boy. , she was doing quite well and during the next day, 06/08/2021, her uterus with firm, minimum amount of vaginal lochia, and overall condition stable. She is both breast-feeding and bottle-feeding. Breas t care; instructions, I briefly reviewed with her and also care. She had a benign exam with a normal blood pressure. She was sent home in the morning in good and stable condit ion. Instructions given to her as previously mentioned above, and she had a benign exam by me in per son. BW/MODL Voice ID: [id number] Report ID: [id number]
[2021-06-08 21:37] LABS: RPR (Rapid Plasma Reagin) NON-REACT (NON-REACT)
[2021-06-12 03:51] LABS: HBsAG Nonreactive (Nonreactive)
== END 2021-06-08 11:20 | disposition home or self-care (01) | DRG 807 ==
LOC: L&D 04:50 → 2ND-WC 05:04 → UNDOADMIN 05:04 → 2ND-WC 05:11
PROVIDERS: ADMIT Obstetrics & Gynecology; ATTEND Specialist
PROC: 10907ZC Drainage of Amniotic Fluid, Therapeutic from Products of Conception, Via Natural or Artificial Opening (ICD-10-PCS; principal; 2021-06-07)
PROC: 10E0XZZ Delivery of Products of Conception, External Approach (ICD-10-PCS; 2021-06-07)
DX: O69.81X0 Labor and delivery complicated by cord around neck, without compression, not applicable or unspecified (principal); Z37.0 Single live birth; O99.824 Streptococcus B carrier state complicating childbirth; O77.0 Labor and delivery complicated by meconium in amniotic fluid; Z3A.38 38 weeks gestation of pregnancy; Z23 Encounter for immunization
CPT/HCPCS: 36415; 81003; 81015; 85025; 86592; 86901; 87086; 87088; 87340; 90471; 90715; J0595; J2210; J2540; J2590; J2795; J3010; J7120; Q2035; U0003